=== PATIENT | female | born 1950 | race Caucasian/White ===

== ENCOUNTER 2021-07-05 12:53 | Emergency (ER) | payer MEDICARE, OTHER ==
[~2021-07-05] VITALS: Ht 165.1 cm; Wt 67.6 kg
--- NOTE | 2021-07-05 13:02 | ED Integumentary General ---
General Stated Complaint: RASH; HANDS PEELING History of Present Illness Date Seen by Provider: Jul 05, 2021 Time Seen by Provider: 13:02 Initial Comments 70-year-old female presents with diffuse rash and hand peeling. Patient reports that on June 10 she was diagnosed with coronavirus. Both her and her were diagnosed. They were started on hydroxychloroquine alone, azithromycin and steroids. Patient finished her medications on 06/26/2021. Both patient and her shortly after that developed erythematous rash. Her started on her hands and is now spread over her whole body with significant erythema. She called her primary care provider and was started on steroids. Her also developed a similar rash at the time. He was also started on steroids. His s ymptoms have improved but hers have worsened. She now has a rash covering approximately 75 % of her body. She reports that sometimes it gets a little itchy. No fever chills nausea vomiting or any other systemic symptoms. She denies any new laundry soaps or other environmental change Allergies and Home Medications Allergies Coded Allergies: No Known Drug Allergies (Unverified , 07/05/21) Patient Home Medication List Home Medication List Reviewed: Yes Review of Systems Review of Systems Constitutional: No chills, No fever Respiratory: no symptoms reported Cardiovascular: no symptoms reported Musculoskeletal: no symptoms reported Skin: see HPI, rash Psychiatric/Neurological: No Symptoms Reported Endocrine: No Symptoms Reported Physical Exam Vital Signs Vital Signs - First Documented 07/05/21 13:25 Temp 36.9 Pulse 109 Resp 14 B/P (MAP) 125/84 (98) Pulse Ox 98 O2 Delivery Room Air Capillary Refill : General Appearance: WD/WN, no apparent distress Cardiovascular: normal peripheral pulses, regular rate, rhythm Respiratory: lungs clear, normal breath sounds, no respiratory distress Gastrointestinal: non tender, soft Skin: rash (Diffuse erythematous macular rash worse on her upper torso and neck and less on her lower extremities) Skin Problem Location: generalized Skin Problem Character: erythema, warm Progress/Results/Core Measures Results/Orders Lab Results Laboratory Tests Test 07/05/21 13:25 Range/Units White Blood Count 17.2 H 4.3-11.0 10^3/uL Red Blood Count 4.53 3.80-5.11 10^6/uL Hemoglobin 15.0 11.5-16.0 g/dL Hematocrit 44 35-52 % Mean Corpuscular Volume 96 80-99 fL Mean Corpuscular Hemoglobin 33 25-34 pg Mean Corpuscular Hemoglobin Concent 35 32-36 g/dL Red Cell Distribution Width 13.2 10.0-14.5 % Platelet Count 308 130-400 10^3/uL Mean Platelet Volume 8.4 L 9.0-12.2 fL Immature Granulocyte % (Auto) 1 % Neutrophils (%) (Auto) 78 H 42-75 % Lymphocytes (%) (Auto) 10 L 12-44 % Monocytes (%) (Auto) 6 0-12 % Eosinophils (%) (Auto) 5 0-10 % Basophils (%) (Auto) 0 0-10 % Neutrophils # (Auto) 13.5 H 1.8-7.8 X 10^3 Lymphocytes # (Auto) 1.7 1.0-4.0 X 10^3 Monocytes # (Auto) 0.9 0.0-1.0 X 10^3 Eosinophils # (Auto) 0.9 H 0.0-0.3 10^3/uL Basophils # (Auto) 0.1 0.0-0.1 10^3/uL Immature Granulocyte # (Auto) 0.1 0.0-0.1 10^3/uL Erythrocyte Sedimentation Rate 12 0-30 MM/HR Sodium Level 133 L 135-145 MMOL/L Potassium Level 4.5 3.6-5.0 MMOL/L Chloride Level 98 98-107 MMOL/L Carbon Dioxide Level 23 21-32 MMOL/L Anion Gap 12 5-14 MMOL/L Blood Urea Nitrogen 17 7-18 MG/DL Creatinine 0.61 0.60-1.30 MG/DL Estimat Glomerular Filtration Rate 98 BUN/Creatinine Ratio 28 Glucose Level 135 H 70-105 MG/DL Calcium Level 9.1 8.5-10.1 MG/DL Corrected Calcium 9.2 8.5-10.1 MG/DL Total Bilirubin 0.4 0.1-1.0 MG/DL Aspartate Amino Transf (AST/SGOT) 33 5-34 U/L Alanine Aminotransferase (ALT/SGPT) 58 H 0-55 U/L Alkaline Phosphatase 92 40-136 U/L Total Protein 6.7 6.4-8.2 GM/DL Albumin 3.9 3.2-4.5 GM/DL My Orders Orders - MOODY,NAGA L DO Cbc With Automated Diff (07/05/21 13:17) Comprehensive Metabolic Panel (07/05/21 13:17) Erythrocyte Sedimentation Rate (07/05/21 13:17) Manual Differential (07/05/21 13:25) Vital Signs/I&O 07/05/21 13:25 Temp 36.9 Pulse 109 Resp 14 B/P (MAP) 125/84 (98) Pulse Ox 98 O2 Delivery Room Air Departure Impression Primary Impression: Rash and other nonspecific skin eruption Disposition: HOME, SELF-CARE Condition: Stable Departure-Patient Inst. Referrals: ABRAHAM RAMSEY DO (PCP/Family) Primary Care Physician Patient Instructions: Skin Rash (DC) Add. Discharge Instructions: Please call engine watchman on Wednesday morning for an outpatient evaluation. NAGA MOODY DO Jul 05, 2021 13:02
[2021-07-05 13:38] LABS: BASOPHILS # (AUTO) 0.1 10^3/uL (0.0-0.1); BASOPHILS % (AUTO) 0 % (0-10); EOSINOPHILS # (AUTO) 0.9 10^3/uL (0.0-0.3); EOSINOPHILS % (AUTO) 5 % (0-10); HEMATOCRIT 44 % (35-52); LYMPHOCYTES # (AUTO) 1.7 X 10^3 (1.0-4.0); LYMPHOCYTES % (AUTO) 10 % (12-44); MEAN CORPUSCULAR HEMOGLOBIN 33 pg (25-34); MEAN CORPUSCULAR HGB CONC 35 g/dL (32-36); MEAN CORPUSCULAR VOLUME 96 fL (80-99); MEAN PLATELET VOLUME 8.4 fL (9.0-12.2); MONOCYTES # (AUTO) 0.9 X 10^3 (0.0-1.0); MONOCYTES % (AUTO) 6 % (0-12); NEUTROPHILS # (AUTO) 13.5 X 10^3 (1.8-7.8); NEUTROPHILS % (AUTO) 78 % (42-75); PLATELET COUNT 308 10^3/uL (130-400); WHITE BLOOD COUNT 17.2 10^3/uL (4.3-11.0)
[2021-07-05 13:52] LABS: CREATININE SERUM 0.61 MG/DL (0.60-1.30); POTASSIUM 4.5 MMOL/L (3.6-5.0)
[2021-07-05 13:53] LABS: ALBUMIN 3.9 GM/DL (3.2-4.5); BILIRUBIN,TOTAL 0.4 MG/DL (0.1-1.0); CALCIUM 9.1 MG/DL (8.5-10.1); TOTAL PROTEIN 6.7 GM/DL (6.4-8.2)
[2021-07-05 13:54] LABS: ERYTHROCYTE SEDIMENTATION RATE 12 MM/HR (0-30)
[2021-07-05 14:06] LABS: EOSINOPHILS % (MANUAL) 6 %; LYMPHOCYTES % (MANUAL) 5 %; MONOCYTES % (MANUAL) 4 %; NEUTROPHILS % (MANUAL) 85 %; POLYCHROMASIA MODERATE
[2021-07-05 14:07] LABS: TOXIC GRANULATION/VACUOLAZATIO 4+
[2021-07-05 14:11] VITALS: BP 125/84
== END 2021-07-05 14:08 | disposition home or self-care (01) ==
LOC: EDUNIT# 12:53 → ER FS 13:00
DX: R21 Rash and other nonspecific skin eruption (principal); Z86.16 Personal history of COVID-19
CPT/HCPCS: 36415; 80053; 85007; 85027; 85652